=== PATIENT | male | born 1970 | race Caucasian/White ===

== ENCOUNTER → 2017-09-03 | Outpatient (CLI) | payer BC ==
--- NOTE | 2017-09-03 16:44 | PCVCIMAG ---
APPROVED REPORT Exam: Stress Echocardiogram Indication: CAD s/p PCI, Dyspnea Patient Location: Echo lab Stress Nurse: Lilian Saavedra RN Room #: 2 Status: routine Ht: 5 ft 9 in HR: 61 bpm BP: 118/78 mmHg Rhythm: NSR Medical History Medical History: CAD s/p stent Previous Cardiac Procedures: PCI Exercise History: Physically active Procedure The patient underwent an Exercise Stress Test using the Herb Protocol. Blood pressure, heart rate, and EKG were monitored. An Echocardiogram was performed by all source intelligence technician in four stages in quad fashion. At peak stress, four selected images were obtained and placed side by side with resting images for comparison. Stress Test Details Stress Test: Exercise stress testing was performed using a Herb protocol. HR Resting HR: 62 bpmMax Heart Rate (APMHR): 175 bpm Max HR Achieved: 179 bpmTarget HR (85% APMHR): 148 bpm % of APMHR: 102 Recovery HR: 85 bpm HR response to stress: Normal HR response to stress BP Resting BP: 118/78 mmHg Max BP: 148/70 mmHg Recovery BP: 108/64 mmHg ECG Resting ECG: Sinus Rhythm Stress ECG: Sinus Rhythm ST Change: Normal Arrhythmia: None Recovery ECG: Sinus Rhythm Recovery ST Change: Normal Recovery Arrhythmia: None Clinical Reason for Termination: Maximal effort Stress Symptoms: none Exercise duration: 15 min sec Highest Stage Achieved: Stage 5: 5.0 mph at 18% grade. Exercise capacity: 17.5 METs Overall Exercise Capacity for Age: Excellent Angina Score: None Stress ECG Conclusion The patient exercised according to the Herb Protocol for15:00 minutes, achieving a maximum work level of 17.5 METS. The resting heart rate of 62 bpm, derik to a maximal level of 179 bpm. This value [id number] % of the maximal, age-predicted heart rate. The resting blood pressure of 118/78 mmHg, derik to a maximum blood pressure of 148/70 mmHg. The exercise was stopped due to fatigue. Pre-Stress Echo The resting Echocardiogram showed normal left ventricular contractility with an estimated Ejection Fraction of about 50-55%. Normal wall motion in all segments on baseline images. Post-Stress Echo The stress Echocardiogram showed normal left ventricular contractility with an estimated Ejection Fraction of about 60-65%. Normal augmentation of wall motion in all segments on post stress images. Clinical No clinical or ECG evidence for ischemia. Conclusion Clinical Response: Non-ischemic Exercise Capacity: Superior Stress ECG Response: Non-ischemic Stress Echo Images: Non-ischemic No clinical, EKG or echocardiographic evidence for ischemia. No echocardiographic evidence for exercise induced ischemia. Normal stress echocardiogram with maximal exercise stress. <Conclusion> No clinical, EKG or echocardiographic evidence for ischemia. No echocardiographic evidence for exercise induced ischemia. Normal stress echocardiogram with maximal exercise stress.
== END | disposition home or self-care (01) ==
LOC: PCVCIMAG 09:19
PROVIDERS: ATTEND Internal Medicine Cardiovascular Disease
DX: I25.10 Atherosclerotic heart disease of native coronary artery without angina pectoris (principal); R06.00 Dyspnea, unspecified; R07.89 Other chest pain; Z95.5 Presence of coronary angioplasty implant and graft
CPT/HCPCS: 93325; 93351